=== PATIENT | female | born 1980 | race Caucasian/White ===

== ENCOUNTER 2016-10-17 16:32 | Emergency (ER) | payer MEDICAID ==
[~2016-10-17] VITALS: Wt 104.5 kg
[2016-10-17 17:30] LABS: URINE BLOOD (Dip) POC Negative (NEGATIVE)
[2016-10-17 17:43] LABS: BASOPHIL # 0.1 10^3/ul (0.0-0.1); BASOPHILS % 0.6 % (0.0-2.0); EOSINOPHILS # 0.1 10^3/ul (0.0-0.5); HEMOGLOBIN 13.6 g/dl (12.0-16.0); LYMPHOCYTES # 2.3 10^3/ul (0.8-2.9); LYMPHOCYTES % 18.4 % (15.0-51.0); MEAN CORPUSCULAR HEMOGLOBIN 29.4 pg (29.0-33.0); MEAN CORPUSCULAR HGB CONC 34.9 g/dl (32.0-37.0); MEAN CORPUSCULAR VOLUME 84.4 fl (82.0-101.0); MEAN PLATELET VOLUME 9.6 fl (7.4-10.4); MONOCYTE # 0.8 10^3/ul (0.3-0.9); MONOCYTES % 6.6 % (0.0-11.0); PLATELET COUNT 315 10^3/UL (140-415); RED BLOOD COUNT 4.62 10^6/ul (4.20-5.40); RED CELL DISTRIBUTION WIDTH 12.2 % (11.5-14.5); WHITE BLOOD COUNT 12.3 10^3/ul (4.8-10.8)
--- NOTE | 2016-10-17 17:53 | RADRPT ---
PROCEDURE: XR Chest. CLINICAL INDICATION: Chest pain TECHNIQUE: Single portable view of the chest was obtained COMPARISON: None FINDINGS: The heart is enlarged. The lungs are clear. There is no pleural effusion or pneumothorax. RPTAT: AA IMPRESSION: Mild Cardiomegaly. .Wilfrido Banks MD, Date Time Electronically viewed and signed by .Wilfrido Banks MD, on 10/17/2016 17:52 .S/
[2016-10-17 18:12] LABS: INR 0.91; PROTIME 12.2 Sec (12.2-14.2)
[2016-10-17 18:13] LABS: ALANINE AMINOTRANSFERASE 58 IU/L (13-69); ALBUMIN 4.3 g/dl (3.3-4.9); ALBUMIN/GLOBULIN RATIO 1.19; ALKALINE PHOSPHATASE 79 IU/L (42-121); ANION GAP 13 (8-16); ASPARTATE AMINO TRANSFERASE 32 IU/L (15-46); BILIRUBIN,INDIRECT 0.2 mg/dl (0-1.1); BILIRUBIN,TOTAL 0.2 mg/dl (0.2-1.3); BLOOD UREA NITROGEN 10 mg/dl (7-20); CALCIUM 9.4 mg/dl (8.4-10.2); CARBON DIOXIDE 25 mmol/L (21-31); CHLORIDE 104 mmol/L (97-110); GLUCOSE 118 mg/dl (70-220); PARTIAL THROMBOPLASTIN TIME 27.9 Sec (25.0-35.0); POTASSIUM 3.6 mmol/L (3.5-5.1); SODIUM 138 mmol/L (135-144); TOTAL PROTEIN 7.9 g/dl (6.1-8.1)
[2016-10-17 18:25] LABS: TROPONIN-I < 0.012 ng/ml (0.00-0.12)
[2016-10-17] MEDS ORDERED: ALPR0.25 PO (19:16)
[2016-10-17 19:42] VITALS: BP 136/79; PULSE 95; RESP 15; TEMP 98.3
--- NOTE | 2016-10-20 16:18 | ERD ---
ER Documentation Chief Complaint Date/Time DATE: 10/20/16 TIME: 16:08 Chief Complaint FEELS ANXIOUS, SOB, BLURRY VISION, UNDER A LOT STRESS HPI This is a 36-year-old female presenting to emergency department with anxiety, shortness of breath, blurry vision, and heart palpitations starting 1 hour prior to arrival. Patient states she is feeling very anxious and is under a lot of stress at home. Patient currently denies shortness of breath, chest pain or heart palpitations. No blurry or loss of vision. No nausea, vomiting, diarrhea or abdominal pain. Patient states she has had this same symptoms about 2 years ago in which she went to a hospital and was told "everything was normal." ROS All systems reviewed and are negative except as per history of present illness. Medications Home Meds Active Scripts Alprazolam* (Xanax*) 0.25 Mg Tablet, 0.25 MG PO Q8H Y for ANXIETY, #10 TAB Prov:DEEPA MENJIVARReinaldo CEMENT TESTER ASSISTANT 10/17/16 PMhx/Soc Medical and Surgical Hx: pt denies Medical Hx Physical Exam Vitals Vital Signs Date Time Temp Pulse Resp B/P Pulse Ox O2 Delivery O2 Flow Rate FiO2 10/17/16 19:42 98.3 95 15 136/79 98 Room Air 10/17/16 16:36 98.6 99 18 140/80 99 Physical Exam Const: No acute distress, alert Head: Atraumatic Eyes: Normal Conjunctiva, PERRL ENT: Normal External Ears, Nose and Mouth. Neck: Full range of motion..~ No meningismus. Resp: Clear to auscultation bilaterally. No wheezing, rhonchi or crackles. No stridor or labored breathing. Cardio: Regular rate and rhythm, no murmurs Abd: Soft, non tender, non distended. Normal bowel sounds Skin: No petechiae or rashes Back: No midline or flank tenderness Ext: No cyanosis, or edema Neur: Awake and alert Psych: Normal Mood and Affect Result Diagram: 10/17/16 1735 10/17/16 1735 Results 24 hrs Laboratory Tests Test 10/17/16 17:35 White Blood Count 12.310^3/ul Red Blood Count 4.6210^6/ul Hemoglobin 13.6g/dl Hematocrit 39.0% Mean Corpuscular Volume 84.4fl Mean Corpuscular Hemoglobin 29.4pg Mean Corpuscular Hemoglobin Concent 34.9g/dl Red Cell Distribution Width 12.2% Platelet Count 57659^3/UL Mean Platelet Volume 9.6fl Neutrophils % 73.0% Lymphocytes % 18.4% Monocytes % 6.6% Eosinophils % 1.0% Basophils % 0.6% Nucleated Red Blood Cells % 0.0/100WBC Neutrophils # (Manual) 910^3/ul Lymphocytes # 2.310^3/ul Monocytes # 0.810^3/ul Eosinophils # 0.110^3/ul Basophils # 0.110^3/ul Nucleated Red Blood Cells # 0.010^3/ul Prothrombin Time 12.2Sec Prothrombin Time Ratio 1.0 INR International Normalized Ratio 0.91 Activated Partial Thromboplast Time 27.9Sec Bedside Urine pH (LAB) 6.5 Bedside Urine Protein (LAB) Negative Bedside Urine Glucose (UA) Negative Bedside Urine Ketones (LAB) Negative Bedside Urine Blood Negative Bedside Urine Nitrite (LAB) Negative Bedside Urine Leukocyte Esterase (L Negative Sodium Level 138mmol/L Potassium Level 3.6mmol/L Chloride Level 104mmol/L Carbon Dioxide Level 25mmol/L Anion Gap 13 Blood Urea Nitrogen 10mg/dl Creatinine 0.70mg/dl Glucose Level 118mg/dl Calcium Level 9.4mg/dl Total Bilirubin 0.2mg/dl Direct Bilirubin 0.00mg/dl Indirect Bilirubin 0.2mg/dl Aspartate Amino Transf (AST/SGOT) 32IU/L Alanine Aminotransferase (ALT/SGPT) 58IU/L Alkaline Phosphatase 79IU/L Troponin I < 0.012ng/ml Total Protein 7.9g/dl Albumin 4.3g/dl Globulin 3.60g/dl Albumin/Globulin Ratio 1.19 Procedures/MDM [place] [address] Radiology Main Line: [phone] DIAGNOSTIC IMAGING REPORT Patient: ESTELLA PIÑA : 1980 Age: 36 Sex: F MR #: [id number] DOS: 10/17/16 1724 Ordering MD: DEEPA MENJIVAR NP Location: [facility] Room/Bed: PROCEDURE: XR Chest. CLINICAL INDICATION: Chest pain TECHNIQUE: Single portable view of the chest was obtained COMPARISON: None FINDINGS: The heart is enlarged. The lungs are clear. There is no pleural effusion or pneumothorax. RPTAT: AA IMPRESSION: Mild Cardiomegaly. EKG: As interpreted by myself and Dr. Waite Rate/Rhythm: Normal Sinus Rhythm with heart rate 89 bpm QRS, ST, T-waves: No changes consistent w/ acute ischemia Impression: No evidence of ischemia or arrhythmia MDM: This is a 36-year-old female presenting to emergency department with shortness of breath, patient's, blurry vision and anxiety about 1 hour prior to arrival. Patient states she is feeling better now that she is in the ER. Patient is concerned because her father has a history of a "heart problem." Currently patient denies chest pain, chest pressure, heart palpitations, shortness of breath or difficulty breathing. No blurry vision or loss of vision. CBC shows no significant anemia or infection. CMP shows no significant electrolyte imbalance. Urine dip is negative for infection. Urine is negative. Troponin is less than 0.012. PT 12.2, PTT 27.9 and INR 0.91. EKG shows normal sinus rhythm with heart rate 89 bpm. Chest x-ray reviewed by radiologist as mild cardiomegaly. Discussed findings with patient and encouraged patient to follow-up with anesthesiologist assistant certified for further evaluation. Vital signs are stable. Patient is calm and cooperative throughout ED visit. Differential diagnosis includes but not limited to pneumonia, bronchitis, pleurisy, costochondritis, gastroesophageal reflux,musculoskeletal chest pain and esophageal spasm. Low suspicion for acute coronary syndrome, pulmonary embolism, pneumothorax, aortic dissection and myocardial infarction. Patient is appropriate for outpatient management and will be discharged as stable. Patient will be given prescription for alprazolam 0.25 mg #10. Instructed patient to follow up with primary care provider in the next 24-48 hours. Return to ED for worsening pain, abdominal pain, vomiting, diarrhea, high fever or any new or worsening symptoms. Patient verbalizes understanding. All questions answered at discharge. Departure Diagnosis: Primary Impression: Anxiety Additional Impression: Heart palpitations Condition: Stable Patient Instructions: Your Body's Response to Anxiety, Anxiety Reaction, Palpitations Referrals: MAGO MONTALVO MD, JOAN R [facility] () Usted se segal hecho un examen mdico de control que le indica que no est en esther condicin que requiera tratamiento urgente en el Departamento de Emergencia. Un estudio ms profundo y el tratamiento de swartz condicin pueden esperar sin ningn riesgo hasta que usted sea atendida/o en el consultorio de swartz mdico o esther cl jorge. Es responsabilidad suya arreglar esther carlyle para el seguimiento del noah. MANEJO DE CONDICIONES NO URGENTES EN EL FUTURO 1) Si usted tiene un mdico de atencin primaria: Usted debera llamar a swartz mdico de atencin primaria antes de venir al departamento de emergencia. Despus de las horas de consultorio, swartz doctor o swartz asociado/a est disponible por telfono. El mdico o enfermero de shivani en el servicio telefnico puede asesorarle por teodora medio para atender el problema, o noah contrario se puede programar esther carlyle. 2) Si usted no tiene un mdico de atencin primaria: Llame al mdico o clnica de referencia que aparece abajo hood las horas de consultorio para hacer esther carlyle para que le vean. CLINICAS: [facility] [phone] [facility] [phone] [facility] [phone] [place] [id number] [phone] [facility] [facility] [place] [id number] [phone] [facility]. [phone] [address] [facility] () Usted se segal hecho un examen mdico de control que le indica que no est en esther condicin que requiera tratamiento urgente en el Departamento de Emergencia. Un estudio ms profundo y el tratamiento de swartz condicin pueden esperar sin ningn riesgo hasta que usted sea atendida/o en el consultorio de swartz mdico o esther cl jorge. Es responsabilidad suya arreglar esther carlyle para el seguimiento del noah. MANEJO DE CONDICIONES NO URGENTES EN EL FUTURO 1) Si usted tiene un mdico de atencin primaria: Usted debera llamar a swartz mdico de atencin primaria antes de venir al departamento de emergencia. Despus de las horas de consultorio, swartz doctor o swartz asociado/a est disponible por telfono. El mdico o enfermero de shivani en el servicio telefnico puede asesorarle por teodora medio para atender el problema, o noah contrario se puede programar esther carlyle. 2) Si usted no tiene un mdico de atencin primaria: Llame al mdico o condado institucions de referencia que aparece abajo hood las horas de consultorio para hacer esther carlyle para que le vean. SI USTED NO PUEDE PAGAR PARA GIAN UN MEDICO puede ir a: [facility] [address] [place] [address] [facility] [address] [place] [address] [facility] [address] [place] [address] [facility] [address] [place] [address] Additional Instructions: Llame al doctor MAANA y alonzo esther CARLYLE PARA DENTRO DE 2-3 VALDOVINOS.Dgale a la secretaria que nosotros le instruimos hacer esta carlyle.Avise o llame si swartz condicin se empeora antes de la carlyle. Regresa aqui si peor o no mejor. Regresar a ED por fiebre brian, dolor en el pecho, dificultad para respirar, respiracin entrecortada, sibilancias, vmitos, diarrea, dolor abdominal o cualquier sntoma nuevo o que empeora. DEEPA MENJIVAR NP Oct 20, 2016 16:18
== END 2016-10-17 19:44 | disposition home or self-care (01) ==
LOC: FTE 16:32
DX: F41.9 Anxiety disorder, unspecified (principal); R00.2 Palpitations
CPT/HCPCS: 71010; 80053; 81003; 84484; 85025; 85610; 85730; 93005; Z7502

== ENCOUNTER 2018-01-08 16:04 | Emergency (ER) | END 2018-01-08 17:45 | disposition home or self-care (01) ==